=== PATIENT | female | born 1960 | race Caucasian/White ===

== ENCOUNTER 2025-01-22 16:41 | Inpatient (IN) | payer OTHER, SELFPAY ==
[2025-01-22 12:55] VITALS: BP 135/68
[2025-01-22 13:31] LABS: % Basophils 0.3 % (0-2); % Immature Granulocytes 0.5 % (0-0.5); % Lymphocytes 4.7 % (20.5-51.1); % Monocytes 6.2 % (1.7-9.3); % Neutrophils 88.3 % (42.2-75.2); Absolute Immature Granulocytes 0.1 10^3/uL (0-0.05); Absolute Lymphocytes 0.5 10^3/uL (1.2-3.4); Absolute Monocytes 0.7 10^3/uL (0.1-0.6); Absolute Neutrophils 9.6 10^3/uL (1.4-6.5); Hematocrit 37.1 % (37.0-47.0); Hemoglobin 12.7 g/dL (12.0-16.0); Mean Corp Hgb Conc. 34.2 g/dL (33.0-37.0); Mean Corpuscular Hgb 29.7 pg (27.0-31.0); Mean Corpuscular Volume 86.9 fL (81.0-99.0); Mean Platelet Volume 9.4 fL (7.4-10.4); Nucleated Red Blood Cells % 0 %; Platelet Count 228 10^3/uL (130-400); Red Blood Cell Count 4.27 10^6/uL (4.20-5.40); Red Cell Dist. Width 12.4 % (11.5-14.5); White Blood Cell Count 10.9 10^3/uL (4.8-10.8)
[2025-01-22 13:46] LABS: ALT (SGPT) 13 U/L (0-35); AST (SGOT) 31 U/L (14-36); Albumin 4.1 g/dl (3.5-5.0); Alkaline Phosphatase 93 U/L (38-126); Blood Urea Nitrogen 12 mg/dl (7-17); Carbon Dioxide 26 mmol/L (22-30); Chloride 103 mmol/L (98-107); Glucose 154 mg/dl (70-99); Potassium 4.2 mmol/L (3.5-5.1); Sodium 138 mmol/L (135-145); Total Bilirubin 0.4 mg/dl (0.2-1.3); Total Protein 7.1 g/dl (6.3-8.2); eGFR > 60.00
--- NOTE | 2025-01-22 15:37 | ED.GENMED ---
History of Present Illness
General
Chief Complaint: Skin Problem
Time Seen by Provider: 01/22/25 15:36
History of Present Illness
History of Present Illness:
TIME OF INITIAL ENCOUNTER:
HPI: Patient is concerned because she states she was bitten by tick 2 weeks ago. The bite occurred above her right eye and initially was asymptomatic. 3 days ago, she developed some swelling and then nausea and vomiting. Of note, the patient's
showed me a picture of the tick on her phone located at the area of concern to the superomedial aspect of the right orbit. She was at urgent care and was placed on Keflex and Valtrex yesterday. Despite this, her symptoms continue to worsen.
No fevers.
EXAM:
GENERAL: Well appearing in no distress
HEENT: Moderate to severe right periorbital edema and erythema. At the superomedial most portion of the right orbit, there is phlegmonous tissue with darker discoloration, there are also some vesicles noted somewhat concerning for zoster. There is
no fluorescein uptake on corneal examination.
CARDIOVASCULAR: No murmurs, normal heart rate, regular rhythm, No chest wall tenderness
PULMONARY: No respiratory distress, breath sounds are clear and equal
ABDOMEN: Soft with no peritoneal signs, no tenderness
NEUROLOGIC: Excellent strength all extremities, no coordination deficits
PSYCHIATRIC: Appropriate mental status, normal insight and judgement
EXTREMITIES: Nontender, no edema, moves all extremities equally
SKIN: See HEENT exam above
NUMBER AND COMPLEXITY OF PROBLEMS ADDRESSED AT THE ENCOUNTER
� Chronic conditions affecting care: No significant past medical history
� Acute Exacerbation and/or Progression of Chronic Illness: This is an acute problem
� Differential Diagnosis includes: Periorbital cellulitis, herpes zoster ophthalmicus, shingles, abscess,
AMOUNT AND/OR COMPLEXITY OF DATA TO BE REVIEWED AND ANALYZED
� I performed an independent evaluation of and my interpretation is:
EKG:
CT: CT imaging personally viewed and agree with radiologist notation that there is no orbital cellulitis or abscess
X-rays:
Laboratory Studies: White count 10.9, left shift, chemistries unremarkable
Other:
� Review of other/old records: No old records available for review in [facility]
� Clinical information was obtained by an independent historian: I spoke to at bedside
� Prescriptions/Medications Considered but not given:
� Further testing considered but not performed:
RISK OF COMPLICATIONS AND/OR MORBIDITY OR MORTALITY OF PATIENT MANAGEMENT
� Social determinants of health affecting care: Lives at home
� Discussion with other providers: I discussed case with Dr. Osuna/Dr. Enriquez. Dr. Osuna evaluated the patient in the ED. Dr. Ibrahim for admission he was planning vancomycin and Unasyn.
� Escalation of care including admission/observation vs risk of discharge considered: I did give Vanco and Rocephin initially in the emergency department. I also sent for wound culture. Recommend admission to the hospital. She
has been having difficulty tolerating the oral medications and is failing outpatient management.
ANY OTHER UPDATES:
Phy Exam
Physical Exam
Physical Exam:
See HPI
Course
Orders/Labs/Results
Orders:
Orders
01/22/25 13:07
Complete Blood Count/With Diff Urgent
Comprehensive Metabolic Panel Urgent
Lyme Progressive Urgent
Comment: ADD ON
01/22/25 15:55
Add On- LAB Urgent
Tests Added?: lyme progressive
01/22/25 15:57
Wound Culture [Wound/Abscess/Other Culture] Urgent
JOSE ANGEL Source: Skin Surface
Specimen Description:
Date Specimen was Collected: 01/22/25
Time Specimen was Collected: 15:54
01/22/25 15:58
CefTRIAXone [Rocephin] 1,000 mg IV NOW STA
Ketorolac [Toradol] 15 mg IV NOW STA
Ondansetron Injectable [Zofran] 4 mg IV NOW STA
01/22/25 16:04
Admit/Transfer Patient As Directed
Co-Sign Provider:
Level of Care: Inpatient admission
Assign to:: Medical/Surgical
Physician / Group: [facility]
Diagnosis: right eyelid abscess
Reason for Hospitalization: right eyelid abscess
Expected length of stay greater than two midnights?: Yes
ELOS- Estimated Length of Stay in days: 3
I certify the patient meets the requirements for IP care: Yes
01/22/25 16:05
Code Status As Directed
Resuscitation Status: Full Code
PRN Pain Medication Management As Directed
May give lesser potent ordered pain med per pt: Yes
preference::
Protocol:: Medication orders for pain may be administered in a
manner that supports deferring to patient preference
when the pt is:
- Requesting an ordered lesser potent pain medication.
Least to most potent pain medications are defined
as: acetaminophen < NSAID < tramadol < opioids
(morphine, oxycodone, hydromorphone).
- Requesting a lesser dose of the same medication IF
ORDERED.
- Requesting a less intrusive route of administration
if both routes are prescribed by the provider (PO <
IV).
01/22/25 16:08
CT Orbits With Iv Contrast Urgent
Comment:
Reason For Exam: eval R periorbital cellultis
01/22/25 16:12
Ampicillin/Sulbactam 3 G [Unasyn] 3 gm 0.9% Sodium Chloride 100 ml [Nss] 100 ml IV NOW
01/22/25 16:14
Vancomycin [Vancocin] 1,500 mg 0.9% Sodium Chloride 500 ml [Nss] 500 ml IV NOW
01/22/25 16:19
EKG [Electrocardiogram (*1)] Stat
Reason for Study: QTc Monitoring
Abnormal Lab Results
01/22/25
13:07
WBC 10.9 H 10^3/uL
(4.8-10.8)
Abs Immat Gran (auto) 0.1 H 10^3/uL
(0-0.05)
Absolute Neuts (auto) 9.6 H 10^3/uL
(1.4-6.5)
Absolute Lymphs (auto) 0.5 L 10^3/uL
(1.2-3.4)
Absolute Monos (auto) 0.7 H 10^3/uL
(0.1-0.6)
Neutrophils % 88.3 H %
(42.2-75.2)
Lymphocytes % 4.7 L %
(20.5-51.1)
Glucose 154 H mg/dl
(70-99)
01/22/25 13:07
01/22/25 13:07
Vital Signs
Initial and Last Documented VS:
Initial Vital Signs
Temp Pulse Resp BP Pulse Ox
36.9 C 85 16 135/68 98
01/22/25 12:55 01/22/25 12:55 01/22/25 12:55 01/22/25 12:55 01/22/25 12:55
Last Documented Vital Signs
Temp Pulse Resp BP Pulse Ox
36.9 C 74 16 124/76 98
01/22/25 12:55 01/22/25 18:00 01/22/25 18:00 01/22/25 18:00 01/22/25 18:00
*Critical Care Note
Total Time (30-74mins, 75-104mins- exclusive of procedures): Not Applicable
ED Attending Note
-
Portions of this chart may have been created with voice recognition software.� Occasional wrong word or��sound alike� substitutions may have occurred due to the inherent limitations of voice recognition software.
Discharge Plan
Departure
Patient Disposition: Admit
Date of Disposition: 01/22/25
Time of Disposition: 16:01
Presentation/result/management discussed w/ accepting MD/DO: Hospitalist
Discharge Problem:
Periorbital cellulitis of right eye
Interventions
Interventions:
*Risk Screen - Suicide Last Done: 01/22/25 12:57
*General Assessment Last Done: 01/22/25 17:00
*Neglect/Abuse Screening Last Done: 01/22/25 12:57
*ED- Fall Risk Assessment Last Done: 01/22/25 17:00
*ED COVID-19 Vaccine History Last Done: 01/22/25 17:00
ED-Skin Assessment Last Done: 01/22/25 17:00
--- NOTE | 2025-01-22 15:50 | HPS.HSE ---
Family Physician
-
Family Physician:
Chief Complaint
-
Right eye absence
History of Present Illness
63-year-old with no significant past medical history presented to us with right eyebrow abscess. Patient stated a tick bite 2 weeks on the right eyelid. She noticed a pimple on her right eyebrow on Sunday. By Sunday she noticed worsening
swelling and redness . It started draining yesterday. The redness and the swelling spread to underneath her left eye. Patient is complaining of headache. Denied fever . She is complaining of chills .denied chest pain or short of breath. She
was started on cephalexin and acyclovir yesterday. Patient with nausea and vomiting since last night. Patient denied any abdominal pain, diarrhea. Patient denied dysuria hematuria.
patient was evaluated at urgent care yesterday and prescribed acyclovir and cephalexin.
Wound culture and Lyme culture sent from ER. Admitted for further management. ceftriaxone and vanco ordered in ER.
Medical History
Past Medical History
Past Medical History: Reports None
Past Surgical History: Reports None
Social History
Tobacco: Non-smoker
Alcohol: Daily
Drug: None
Personal: Partner
Living: With Family
Family History
Family History: Not pertinent
Allergies / Home Medications
Allergies reflects when Allergies were last updated in [employer]
Home Medications with original date entered in [employer]
Allergy/Medication List:
Allergies
Allergy/AdvReac Type Severity Reaction Status Date / Time
myacins Allergy Unknown Uncoded 01/22/25 12:58
Review of Systems
-
Constitutional: Reports No Symptoms
EENT: Reports No Symptoms
Respiratory: Reports No Symptoms
Cardiac: Reports No Symptoms
Abdomen/GI: Reports No Symptoms
: Reports No Symptoms
Musculoskeletal: Reports No Symptoms
Skin: Reports Other (Right eyebrow abscess, draining from right eye, left eye bruising and redness)
Neurological: Reports No Symptoms
Endocrine: Reports No Symptoms
Hematologic/Lymphatic: Reports No Symptoms
Psych: Reports No Symptoms
Physical Exam
Vital Signs
Vital Signs
Temp Pulse Resp BP Pulse Ox
98.4 F 85 16 135/68 98
01/22/25 12:55 01/22/25 12:55 01/22/25 12:55 01/22/25 12:55 01/22/25 12:55
Physical Exam
General: Well Developed, Well Nourished and No Apparent Distress
HEENT: NormoCephalic, Moist mucous membranes and Atraumatic
Respiratory: Clear
Cardiac: S1/S2 and Regular Rhythm; No Murmur or Rub
GI: Soft, Non Tender, Non Distended and Normal Bowel Sounds; No Organomegaly
Rectal: Deferred by Provider
Musculoskeletal: No Clubbing, No Cyanosis and No Edema
Skin: Rash and Other (Right thigh abscess, draining, left eye redness and slight swelling)
Neuro: Nonfocal/grossly intact
Psych: Calm
Laboratory Results
-
01/22/25 13:07
01/22/25 13:07
Laboratory Results
Total Bilirubin 0.4 mg/dl (0.2-1.3) 01/22/25 13:07
AST 31 U/L (14-36) 01/22/25 13:07
ALT 13 U/L (0-35) 01/22/25 13:07
Alkaline Phosphatase 93 U/L (38-126) 01/22/25 13:07
Data Reviewed
-
Lab Data: Labs Reviewed by me
Impression/Plan
-
# Right periorbital cellulitis secondary to recent tick bite
-Patient was started on Valtrex and Keflex yesterday
- WBCs 10.9
-Lyme screen pending
-Wound culture sent from ER
-Tylenol as needed for fever and pain
-iv vanco and Unasyn continued
# DVT prophylaxis
- Lovenox subcu
# CODE STATUS
- Full code
[2025-01-22 16:01] VITALS: BMI 26.0
--- NOTE | 2025-01-22 16:19 | W.PN.UPDATE ---
Update Note
Progress Note Update
This is an addendum to H&P written by ENDOSCOPY TECH Zoila Carr
I saw and examined the patient.
The ENDOSCOPY TECH's note was reviewed and I agree with the note.
Comment:
MS. Jaz Romero is a 64 yo woman without significant past medical history who presents to the ER with right eye swelling. She reports a tic bite to skin medial to right eye two weeks ago. Area healed. Since Sunday she has had progressive
swelling and vesicle formation near site.
Triage VS: T 36.9 C, P 85, RR 16, BP 135/68, SpO2 98%
On exam patient has significant swelling right eyelid with vesicle appearance medial to right eye. She has difficulty opening eyelid, no pain on eye movement; CV: S1, S2, RRR; Chest clear; Abdomen soft, non-tender, no LE swelling
LABS: WBC 10.9, Hg 12.7, PLT 228, Na 138, K+ 4.2, Cl 103, BUN 12, Cr 0.8, Glucose 154, liver enzymes WNL
Preseptal versus Orbital Cellulitis
-will obtain CT, ordered by ER attending
-IV Vanc/Unasyn for now
-continue Valtrex which was prescribed yesterday
-formal ID consult, aware of plan
DVT PPx Lovenox
FULL CODE
76 MINUTE SPENT ON PATIENT CARE
[2025-01-22] MEDS: TORADOL 15 MG IV (16:45)
[2025-01-22] MEDS: ZOFRAN 4 MG IV (16:45)
--- NOTE | 2025-01-22 16:49 | CON.ID ---
Consultation
-
Date/Time Consultation Requested: 01/22/2025 1609
Date/Time Consultation Performed: 01/22/2025 1630
Requesting Provider: Zoila Carr
Performing Provider: Dr. Osuna
Reason for Consultation: Right periorbital cellulitis
Chief Complaint / Past History
History of Present Illness
Jaz Romero is a 64-year-old female being evaluated at the request of Zoila Carr regarding right periorbital cellulitis. History is obtained from chart review, along with patient interview.
The patient reports that 2 weeks ago today she found a small tick embedded in the right upper corner of her orbital area, and she removed it with her fingers. Subsequently she put on 'Teasel' to help the area heal. The area did okay for a week,
but 5 days ago she reported the marked increase in erythema, and the development of pain. She also developed nausea along with vomiting. Yesterday she was seen in urgent care and prescribed Keflex and Valtrex.
She presents to the ER today secondary to ongoing headache, noted chills, and worsening of the area around the eye. At this time she notes that her right eyelid is swollen, although she can still open her eye. She denies any blurry vision.
She denies any recent travel. She does have dogs as pets. No other rashes on the body.
Past History
Past Medical History: None
Past Surgical History: None
Allergy History:
'myacins' Allergy (Uncoded 01/22/25 12:58)
Unknown
Medications Reviewed: Yes
Current Antibiotics:
Cephalexin
Valtrex
Social History
Tobacco: Non-Smoker
Alcohol: None
Drug: None
Living: With Family
Employment: Employed
Family History
Family History: Not Pertinent
Review of Systems
Vital Signs
Temp Pulse Resp BP Pulse Ox
98.4 F 85 16 135/68 98
01/22/25 12:55 01/22/25 12:55 01/22/25 12:55 01/22/25 12:55 01/22/25 12:55
Physical Exam
Physical Exam
Constitutional: No Acute Distress, Comfortable and Non-toxic
Head: Normocephalic
Eyes: Pupils Equal, Pupils Round, No Conjunctival Hemorrhage, Sclera Anicteric and Other (Right periorbital area swollen and red. See attached picture.)
Oral: No Thrush
Cardiovascular: Regular Rate and S1/S2; Negative S3/S4
Pulmonary: Clear; Negative Wheezes, Rales or Rhonchi
Gastrointestinal: Soft, Non Tender, Non Distended and Normal Bowel Sounds
Extremities: Negative Cyanosis or Erythema
Skin: Warm and Dry; Negative Rash or Jaundice
Neurological: Awake and Alert
Psychological: Calm
Lab / Diagnostic Study Results
01/22/25 13:07
01/22/25 13:07
Abs Immat Gran (auto) 0.1 10^3/uL (0-0.05) H 01/22/25 13:07
Absolute Neuts (auto) 9.6 10^3/uL (1.4-6.5) H 01/22/25 13:07
Absolute Lymphs (auto) 0.5 10^3/uL (1.2-3.4) L 01/22/25 13:07
Absolute Monos (auto) 0.7 10^3/uL (0.1-0.6) H 01/22/25 13:07
Absolute Basos (auto) 0.0 10^3/uL (0-0.2) 01/22/25 13:07
Immature Gran % 0.5 % (0-0.5) 01/22/25 13:07
Neutrophils % 88.3 % (42.2-75.2) H 01/22/25 13:07
Lymphocytes % 4.7 % (20.5-51.1) L 01/22/25 13:07
Monocytes % 6.2 % (1.7-9.3) 01/22/25 13:07
Eosinophils % 0.0 % (0-6) 01/22/25 13:07
Basophils % 0.3 % (0-2) 01/22/25 13:07
Microbiology Results
Micro:
01/22/25 15:57 Wound Culture - Pending
Skin Surface Gram Stain - Pending
Assessment / Plan
Right periorbital cellulitis following tick removal
Leukocytosis; low-grade
Nausea/vomiting
Recommendations:
Continue with vancomycin and Unasyn for the present.
Follow Vanco levels to prevent nephrotoxicity.
Follow for clinical improvement or deterioration.
Should there be any deterioration, patient may need Ophthalmology eval. +/- CT scan of the area.
Check tickborne serology
Local care to the area.
Further recommendations as additional data is returned.
[2025-01-22] MEDS: UNASYN IV ×2 (17:10→22:07)
[2025-01-22] MEDS: VANCOCIN 530 MG IV (17:39)
[2025-01-22 18:00] VITALS: BP 124/76
[2025-01-22 19:35] VITALS: BP 135/60; BMI 25.4
--- NOTE | 2025-01-22 21:30 | PTCARENOTE ---
Patient arrived from ED via stretcher. Patient ambulated independently from stretcher to bed. VSS. Patient states right eye pain is mild at 2/10. IV antibiotics administered per orders. Aside from right eye cellulitis, skin is clean, dry and intact.
Patient oriented to room. All patient needs met. Bed in lowest position. Call peace and personal belongings within reach.
[2025-01-22] MEDS: LOVENOX 40 MG SC (22:07)
[2025-01-22] MEDS: VALTREX 1000 MG PO (22:08)
[2025-01-22 23:47] VITALS: BP 141/77
[2025-01-23] MEDS: TYLENOL 650 MG PO ×2 (00:01→15:06)
[2025-01-23] MEDS: ZOFRAN 4 MG IV (00:01)
[2025-01-23] MEDS: UNASYN IV ×3 (04:39→15:05)
[2025-01-23] MEDS: VANCOCIN 200 IV (05:15)
[2025-01-23] MEDS: VALTREX 1000 MG PO ×3 (07:46→21:01)
[2025-01-23 08:11] VITALS: BP 138/76
[2025-01-23 08:14] LABS: Hematocrit 32.3 % (37.0-47.0); Mean Corp Hgb Conc. 34.1 g/dL (33.0-37.0); Mean Corpuscular Hgb 29.6 pg (27.0-31.0); Mean Corpuscular Volume 86.8 fL (81.0-99.0); Mean Platelet Volume 9.7 fL (7.4-10.4); Platelet Count 202 10^3/uL (130-400); Red Blood Cell Count 3.72 10^6/uL (4.20-5.40); Red Cell Dist. Width 12.3 % (11.5-14.5); White Blood Cell Count 7.4 10^3/uL (4.8-10.8)
--- NOTE | 2025-01-23 08:40 | W.PN.HOSP.TC ---
Addendum entered and electronically signed by Partha Spence MD 01/23/25 21:19:
Attending Addendum-
I saw and evaluated the patient. I reviewed the resident�s note and agree with findings and plan as documented in the resident�s note. Sub: febrile overnight. comapins if pain @ skin lesion. denies MOSQUERA vision changes pain behind eyes. Full 12 point
ROS reviewed and negative except as documented Exam: Vitals reviewed in chart GEN-NAD HEENT right periorbital edema back necrotic eschar noted serosang discharge heart RRR no MRG lungs clear abd soft LE no edema
# Right periorbital cellulitis secondary to recent tick bite
- started as vesicles cont valtrex for possible herpetic infection
- likely superimposed bacterial infection with necrotic cellulitis
- leukocytosis trending down
- Lyme ehrlichia- pending
- Wound culture sent from ER-[facility]
- cont vancomycin add doxycycline for possible lyme (covers ehrlichia, RMSF, tularemia)
- DC Unasyn t/c adding ceftriaxone if worsening or spread orbitally
- wound care
- d/w ID appreciate input
# DVT prophylaxis
- Lovenox subcu
# CODE STATUS
- Full code
Time spent coordinating care, review of plan of care with resident, personally reviewed records in EMR, med rec, consults, notes, labs, radiology, d/w nursing, ID � 55 mins
Original Note:
Today's Communication/Plan
-
Start doxycycline
Assessment / Plan
Assessment / Plan
Assessment
64-year-old female with no significant past medical history with right periorbital cellulitis.
Plan
#Periorbital cellulitis
Secondary to tick bite/tick removal 2 weeks ago.
Tickborne serology pending
Infectious disease on board
Continue vancomycin, MRSA pending�will discontinue if negative
Follow Vanco levels
Will add empiric doxycycline for Lyme coverage
Continue valacyclovir
Monitor CBC, fever curve.
#DVT prophylaxis�Lovenox
Full code
Anticipated Discharge: 24 - 48 hours
Subjective/Interval History
-
Date of Service: January 23, 2025
Patient reports her left eye also appears swollen today.
Objective Data
-
Labs:
Laboratory Results
01/23/25
06:52
WBC 7.4
Hgb 11.0 L
Hct 32.3 L
Plt Count 202
Vital Signs:
Vital Signs
Temp Pulse Resp BP Pulse Ox
98.4 F 66 14 138/76 95
01/23/25 08:11 01/23/25 08:11 01/23/25 08:11 01/23/25 08:11 01/23/25 08:11
Physical Exam
-
General: Well Developed, Well Nourished and No Apparent Distress
HEENT: Normocephalic and Other (Erythema and swelling in the periorbital area of the right eye, black eschar lateral to the glabella on the right side. Mild swelling in the left periorbital region.)
Respiratory: Clear to Auscultation
Cardiac: Regular Rhythm and S1/S2
GI: Soft, Nontender, Nondistended and Normal Bowel Sounds
Neuro: Awake, Alert, Oriented and AO x 3
Psych: Calm
--- NOTE | 2025-01-23 10:26 | PHA.VAN.IN ---
Assessment
- Assessment
Renal Function: Unknown baseline
Maximum Temperature: 100.6
Concomitant Antimicrobials: ampicillin/sulbactam
AUC Dosing Plan
- Empiric Dosing
Initial / Loading Dose: vanco 1500 mg x 1
Maintenance Regimen: vanco 750 mg q12h
Estimated AUC (mcg*h/mL): 488
Estimated Peak (mcg*h/mL): 27.6
Estimated Trough (mcg/ml): 14.3
Estimated Half Life (H): 11.1
- Monitoring
No levels ordered at this time: consider levels in next few days
Pharmacokinetics Vancomycin I
- -
Patient Age: 64
Patient Sex: Female
Vancomycin Day #: 2
Indication: Skin And Soft Tissue
Requesting Provider: Bruno Cummings
Pertinent Antimicrobial Allergies:
nkda
Height / Weight:
Height 5 ft 7 in
Actual Weight 73.624 kg
IBW in k.6
Adjusted BW in k.4
Pertinent Past Medical History: right periorbital cellulitis
- Vital Signs / Lab Results
Temp Pulse Resp BP Pulse Ox
98.4 F 66 14 138/76 95
01/23/25 08:11 01/23/25 08:11 01/23/25 08:11 01/23/25 08:11 01/23/25 08:11
Lab Results - Hematology
01/22/25 01/23/25
13:07 06:52
WBC 10.9 H 7.4
Lab Results - Chemistry
01/22/25
13:07
BUN 12
Creatinine 0.8
Albumin 4.1
Microbiology Results
01/22/25 15:57 Gram Stain - Preliminary
Skin Surface
--- NOTE | 2025-01-23 10:40 | WOUNDNOTE ---
[facility] RN note: Patient admitted with R periorbital cellulitis. Patient stated she had a tick bite (she thinks a deer tick) about 2 weeks ago.
See H&P for complete history.
PMH: tinnitus.
Wound Location and type/assessment: Patient admitted with: R eyebrow brown tissue lesion with some distal pustules with local erythema and edema. Skin felt firm just proximal to crusted lesion. Patient can open her R eye and she denies vision
changes. She stated the affected skin area is itchy and achy.
Appetite: good.
Pressure redistribution devices in place: [employer] Accumax. Patient is mobile.
Plan: cleansed R eyebrow skin lesion with saline, warm compress applied after discussing with Dr. Osuna who was in during visit. Dr. Osuna confirmed no topical treatment indicated except warm compresses q 3 hrs x 20 minutes. Instructed patient
and PHYLLIS Mars. Non woven gauze pads given to patient.
Care plan to be updated and will follow peripherally as needed.
--- NOTE | 2025-01-23 11:13 | W.PN.ID1 ---
Date of Service
Date of Service: January 23, 2025
Today's Communication
Continue abx. See below...
Assessment / Plan
Right periorbital cellulitis following tick removal
Leukocytosis; low-grade
Nausea/vomiting
Recommendations:
Continue with vancomycin while wound culture pending. No MRSA recovered, would discontinue.
D/C further valtrex.
Case discussed with primary service. Agree with transition from Unasyn to ceftriaxone.
Would add empiric doxycycline for possible tickborne coinfection.
Follow Vanco levels to prevent nephrotoxicity.
Follow for clinical improvement or deterioration.
Should there be any deterioration, patient may need Ophthalmology eval.
Tickborne serology ordered
Local care to the area. Warm compresses q3h for 20 min while awake
Further recommendations as additional data is returned.
Chief Complaint
-: Other (Right orbital cellulitis)
Subjective / Review of Systems
Patient seen and examined. Reports ongoing discomfort in the right medial upper eye area.
Vital Signs / Physical Exam
Vital Signs
Vital Signs
Temp Pulse Resp BP Pulse Ox
98.4 F 66 14 138/76 95
01/23/25 08:11 01/23/25 08:11 01/23/25 08:11 01/23/25 08:11 01/23/25 08:11
Physical Exam
Constitutional: No Acute Distress, Comfortable and Non-toxic
Eyes: Other (Right periorbital area swollen and red)
Cardiovascular: S1/S2; Negative S3/S4
Pulmonary: Non Labored
Gastrointestinal: Non Distended
Neurological: Awake and Alert
Psychological: Calm
Objective Data
Lab Data
Lab Results
01/23/25 06:52
01/22/25 13:07
Total Bilirubin 0.4 mg/dl (0.2-1.3) 01/22/25 13:07
AST 31 U/L (14-36) 01/22/25 13:07
ALT 13 U/L (0-35) 01/22/25 13:07
Alkaline Phosphatase 93 U/L (38-126) 01/22/25 13:07
Most recent labs reviewed.
Micro Results:
01/22/25 15:57 Wound Culture - Pending
Skin Surface Gram Stain - Preliminary
Care Review
Plan reviewed with: Physician (Hospitalist and Resident)
[2025-01-23 15:56] VITALS: BP 143/73
[2025-01-23] MEDS: LOVENOX 40 MG SC (17:24)
[2025-01-23] MEDS: VANCOCIN 150 IV (17:24)
[2025-01-23] MEDS: VIBRAMYCIN 100 MG PO (21:02)
[2025-01-23 23:39] VITALS: BP 124/65
[2025-01-24] MEDS: TYLENOL 650 MG PO ×2 (00:08→11:26)
[2025-01-24] MEDS: VANCOCIN 150 IV (05:39)
[2025-01-24] MEDS: FLUSH (NSS) 2 FLUSH IV (05:40)
[2025-01-24] MEDS: VALTREX 1000 MG PO (07:26)
[2025-01-24] MEDS: VIBRAMYCIN 100 MG PO (07:26)
[2025-01-24 07:38] LABS: Hematocrit 34.7 % (37.0-47.0); Hemoglobin 11.9 g/dL (12.0-16.0); Mean Corp Hgb Conc. 34.3 g/dL (33.0-37.0); Mean Corpuscular Hgb 29.7 pg (27.0-31.0); Mean Corpuscular Volume 86.5 fL (81.0-99.0); Mean Platelet Volume 9.2 fL (7.4-10.4); Platelet Count 235 10^3/uL (130-400); Red Blood Cell Count 4.01 10^6/uL (4.20-5.40); Red Cell Dist. Width 12.2 % (11.5-14.5); White Blood Cell Count 6.2 10^3/uL (4.8-10.8)
[2025-01-24 07:54] VITALS: BP 143/78
[2025-01-24 08:12] LABS: ALT (SGPT) 19 U/L (0-35); AST (SGOT) 36 U/L (14-36); Albumin 3.5 g/dl (3.5-5.0); Alkaline Phosphatase 95 U/L (38-126); Blood Urea Nitrogen 12 mg/dl (7-17); Calcium 8.8 mg/dl (8.4-10.2); Carbon Dioxide 29 mmol/L (22-30); Chloride 108 mmol/L (98-107); Estimated Creatinine Clearance 80 ml/min; Glucose 117 mg/dl (70-99); Sodium 144 mmol/L (135-145); Total Bilirubin 0.2 mg/dl (0.2-1.3); Total Protein 6.3 g/dl (6.3-8.2); eGFR > 60.00
--- NOTE | 2025-01-24 08:21 | PHA.VAN.FU ---
Vancomycin Assessment / Plan
- Assessment
Renal Function: Stable
WBC's are: WNL
Concomitant Antimicrobials: doxycycline
- Dosing Plan
Continue: Vanc 750mg Q12H
- Monitoring Plan
No level(s) ordered at this time: consider levels in next few days
- Follow Up
Pharmacy will continue to follow.
Vancomycin Follow UP
- -
Patient Age: 64
Patient Sex: Female
Vancomycin Day #: 3
Indication: Skin And Soft Tissue
Requesting Provider: Bruno Cummings
Pertinent Antimicrobial Allergies:
NKDA
Height / Weight:
Height 5 ft 7 in
Actual Weight 73.624 kg
Pertinent Past Medical History: BMI ~25
- Vital Signs / Lab Results
Temp Pulse Resp BP Pulse Ox
97.9 F 64 16 143/78 97
01/24/25 07:54 01/24/25 07:54 01/24/25 07:54 01/24/25 07:54 01/24/25 07:54
Lab Results - Hematology
01/22/25 01/23/25 01/24/25
13:07 06:52 07:17
WBC 10.9 H 7.4 6.2
Lab Results - Chemistry
01/22/25 01/24/25
13:07 07:17
BUN 12 12
Creatinine 0.8 0.7
Estimated Creat Clear 80
Albumin 4.1 3.5
Microbiology Results
01/22/25 15:57 Wound Culture - Preliminary
Skin Surface No growth
Gram Stain - Preliminary
--- NOTE | 2025-01-24 10:40 | CM ---
Reviewed the chart notes and spoke with the patient at the bedside. The patient resides with her spouse in a two story home with four steps to enter. The patient reports no DME/VN/SNF in the past. The patient confirmed [facility] choice [facility]. [facility] continues to be available to patient/family and is monitoring medical plan for needs at discharge.
Plan: Discharge to home when medically stable. No anticipated needs identified at this time.
--- NOTE | 2025-01-24 13:16 | W.PN.ID1 ---
Date of Service
Date of Service: January 24, 2025
Today's Communication
Continue antibiotics. See below�
Assessment / Plan
Right periorbital cellulitis following tick removal
Leukocytosis; low-grade
Nausea/vomiting
Recommendations:
Improved overall appearance of eye, with decreased erythema and edema.
Etiology at present not clear, but suspect either staph or strep.
Transition to Keflex 500 mg p.o. 4 times daily for an additional 10 days of therapy.
Given that this was a tick bite, would also continue with doxycycline, to complete a 14-day course.
No objection to discharge from a Infectious Diseases standpoint.
Local care to the area. Warm compresses q3h for 20 min while awake
����������������������������������������������������������
Chief Complaint
-: Other (Right orbital cellulitis)
Subjective / Review of Systems
Patient seen and examined. Reports right eye feeling improved.
Vital Signs / Physical Exam
Vital Signs
Vital Signs
Temp Pulse Resp BP Pulse Ox
97.9 F 64 16 143/78 97
01/24/25 07:54 01/24/25 07:54 01/24/25 07:54 01/24/25 07:54 01/24/25 07:54
Physical Exam
Constitutional: No Acute Distress, Comfortable and Non-toxic
Eyes: Other (Right periorbital area with decreased swelling and erythema. Eyelid now opens without effort.)
Cardiovascular: S1/S2; Negative S3/S4
Pulmonary: Non Labored
Gastrointestinal: Non Distended
Neurological: Awake and Alert
Psychological: Calm
Objective Data
Lab Data
Lab Results
01/24/25 07:17
01/24/25 07:17
Estimated Creat Clear 80 ml/min 01/24/25 07:17
Total Bilirubin 0.2 mg/dl (0.2-1.3) 01/24/25 07:17
AST 36 U/L (14-36) 01/24/25 07:17
ALT 19 U/L (0-35) 01/24/25 07:17
Alkaline Phosphatase 95 U/L (38-126) 01/24/25 07:17
Most recent labs reviewed.
Micro Results:
01/22/25 15:57 Wound Culture - Final
Skin Surface No growth
Gram Stain - Final
Care Review
Plan reviewed with: Physician (Hospitalist)
--- NOTE | 2025-01-24 14:09 | W.PN.HOSP.TC ---
Today's Communication/Plan
-
More than 30 minutes spent in discharge including
Final examination of the patient
Summarizing hospital stay
Instructions for continuing care to all relevant caregivers
Preparation of discharge records, prescriptions, and referral forms
Total time spent (in minutes): 33min
Assessment / Plan
Assessment / Plan
Assessment
64-year-old female with no significant past medical history with right periorbital cellulitis.
NAD
Scleral Anicteric
Right periorbital improved swelling and erythema
Able to open right eyelid without tearing nor erythema
MMM
No JVD
CTABL
RRR, S1/S2
Soft, NT, ND, BS+
Warm, Dry
AAOx3
Calm
Plan
#Periorbital cellulitis
Secondary to tick bite/tick removal 2 weeks ago.
Tickborne serology pending
Infectious disease on board
Per infectious diseases
Cleared for discharge
Transition to p.o. antibiotics with Keflex 500 mg 3 times daily for additional 14 days, complete 14-day course of doxycycline 100 mg twice a day
Discontinue Valtrex as completed course per ID via TT
Monitor CBC, fever curve.
#DVT prophylaxis�Lovenox
Full code
Anticipated Discharge: Today
Subjective/Interval History
-
Date of Service: January 24, 2025
Seen and examined. No new complaints. No acute overnight events.
No burning or itching in right eye, no tearing no pain no redness of right eye
Able to open right eye eyelid without difficulty
Objective Data
-
Labs:
Laboratory Results
01/24/25
07:17
WBC 6.2
Hgb 11.9 L
Hct 34.7 L
Plt Count 235
Sodium 144
Potassium 4.0
Chloride 108 H
Carbon Dioxide 29
BUN 12
Creatinine 0.7
Glucose 117 H
Calcium 8.8
Total Bilirubin 0.2
AST 36
ALT 19
Alkaline Phosphatase 95
Vital Signs:
Vital Signs
Temp Pulse Resp BP Pulse Ox
97.9 F 64 16 143/78 97
01/24/25 07:54 01/24/25 07:54 01/24/25 07:54 01/24/25 07:54 01/24/25 07:54
I&O
01/23/25 01/24/25 01/25/25
06:59 06:59 06:59
Intake Total 630 / 630
Balance 630 / 630
--- NOTE | 2025-01-24 14:42 | W.DCSUMMARY ---
Documented by User: Joss Huffman MD, Resident 01/25/25 11:51
Discharge Summary
Discharge Data
Date of Admission: 01/22/25
Date of Discharge: 01/24/25
-
Pending Results: Yes
Additional Pending Results:
Lyme, Ehrlichia serology.
Hospital Course
Discharging Physician : Dr. Spence, Dr. Coreas.
Disposition : Home
Principal Discharge diagnosis : Periorbital cellulitis
Hospital Course : 64-year-old female with no significant past medical history presents to the ER with headache, swelling around the right eye, no blurry vision. Patient reports that she found a small tick in the right upper corner of the orbital
area, and removed it with her fingers. Later she developed erythema and swelling and pain. She was seen in the urgent care and was given Keflex and Valtrex. ER- LABS: WBC 10.9, Hg 12.7, PLT 228, Na 138, K+ 4.2, Cl 103, BUN 12, Cr 0.8, Glucose
154, liver enzymes WNL.VS: T 36.9 C, P 85, RR 16, BP 135/68, SpO2 98%.
Started on vancomycin and Unasyn, valacyclovir. Infectious disease consulted. Further microbiology workup� wound culture, Gram stain, tickborne serology�Lyme, Ehrlichia. Unasyn discontinued and doxycycline was started. Patient's right eye
swelling has improved, feels better and ID is okay to discharge her. Valacyclovir discontinued. Patient has clinically improved and hemodynamically stable to be discharged home. Her discharge medications�Keflex 500 mg, 4 times daily- 10 days and
doxycycline, 100 mg, twice daily�14 days.
Important imaging findings :
Head/orbits CT�01/22/2025�
Findings compatible with right preorbital/periorbital cellulitis.
No CT findings to suggest intraorbital cellulitis.
Discharge Plan
-
Patient Disposition: Home (Routine Discharge)
Discharge Diagnosis/Procedures: Right periorbital cellulitis following tick removal
Condition: Good
Diet: As tolerated
Activity: As tolerated
Activity Restrictions/Additional Instructions:
Outpatient follow-up with ophthalmology
Outpatient follow-up with PCP
Referrals:
Shana Sorensen NP [Family Provider, Family Practice]
Additional Discharge Medication Instructions: Stop Valtrex
Start doxycycline complete 14 days 1 capsule twice a day
Start Keflex 500 mg 1 capsule 4 times a day for 10 days
Prescriptions:
New
doxycycline hyclate 100 mg Capsule
100 mg PO Q12 14 Days Qty: 28 0RF
cephalexin 500 mg capsule
500 mg PO QID 10 Days Qty: 40 0RF
Continued
Excedrin Migraine 250-250-65 mg Tablet
1 tab PO PRN PRN (Reason: PAIN)
Discontinued
cephalexin 500 mg Capsule
500 mg PO QID
valacyclovir [Valtrex] 1 gram Tablet
1,000 mg PO TID
Discharge Orders:
Discharge Patient (As Directed); Ordered 01/24/25
Ordered By: Tyler Parekh
Discharge Date and Time
Discharge Date/Time: 01/24/25 16:34
Print Language: RUSSIAN

Documented by User: Partha Spence MD 01/25/25 15:50
Discharge Summary
Discharge Data
Date of Admission: 01/22/25
Date of Discharge: 01/25/25
Discharge Plan
-
Patient Disposition: Home (Routine Discharge)
Discharge Diagnosis/Procedures: Right periorbital cellulitis following tick removal
Condition: Good
Diet: As tolerated
Activity: As tolerated
Activity Restrictions/Additional Instructions:
Outpatient follow-up with ophthalmology
Outpatient follow-up with PCP
Referrals:
Shana Sorensen NP [Family Provider, [facility]]
Additional Discharge Medication Instructions: Stop Valtrex
Start doxycycline complete 14 days 1 capsule twice a day
Start Keflex 500 mg 1 capsule 4 times a day for 10 days
Prescriptions:
New
doxycycline hyclate 100 mg Capsule
100 mg PO Q12 14 Days Qty: 28 0RF
cephalexin 500 mg capsule
500 mg PO QID 10 Days Qty: 40 0RF
Continued
Excedrin Migraine 250-250-65 mg Tablet
1 tab PO PRN PRN (Reason: PAIN)
Discontinued
cephalexin 500 mg Capsule
500 mg PO QID
valacyclovir [Valtrex] 1 gram Tablet
1,000 mg PO TID
Discharge Orders:
Discharge Patient (As Directed); Ordered 01/24/25
Ordered By: Tyler Parekh
Discharge Date and Time
Discharge Date/Time: 01/24/25 16:34
Print Language: RUSSIAN
[2025-01-24 16:00] VITALS: BP 149/82
[2025-01-26 13:57] LABS: Lyme Antibody Screen, EIA Negative (Negative)
== END 2025-01-24 16:34 | disposition home or self-care (01) | DRG 603 ==
LOC: 4 WEST ACU 16:41
PROVIDERS: Emergency Medicine; Registered Nurse; Student in an Organized Health Care Education/Training Program; ADMITTING PHYSICIAN Student in an Organized Health Care Education/Training Program; ATTENDING PHYSICIAN Hospitalist; CONSULT PHYSICIAN Internal Medicine Infectious Disease; EMERGENCY PHYSICIAN Emergency Medicine; FAMILY PHYSICIAN Nurse Practitioner Family
DX: L03.213 Periorbital cellulitis (principal); L02.01 Cutaneous abscess of face; W57.XXXA Bitten or stung by nonvenomous insect and other nonvenomous arthropods, initial encounter; S00.261A Insect bite (nonvenomous) of right eyelid and periocular area, initial encounter
CPT/HCPCS: 70481; 80053; 85025; 85027; 86618; 86666; 87070; 87205; 93005; 96365; 96375; 99284; Q9967